=== PATIENT | female | born 1950 | race Caucasian/White ===

== ENCOUNTER 2016-05-19 11:06 | Emergency (ER) | payer MEDICARE ==
[~2016-05-19] VITALS: Ht 160 cm; Wt 81.2 kg
[~2016-05-19 11:06] MED LIST: ASPIRIN CHILDRE81 MG PO; LIPITOR80 MG PO; LISINOPRIL5 MG PO; NORVASC5 MG PO
[2016-05-19] MEDS ORDERED: PAROXETINE HCL10 MG PO (11:18)
[2016-05-19] MEDS ORDERED: PROPRANOLOL HYD80 MG PO (11:19)
[2016-05-19] MEDS ORDERED: LISINOPRIL AND1 TAB PO (11:19)
[2016-05-19] MEDS ORDERED: MECLIZINE HCL12.5 MG PO (11:20)
[2016-05-19 12:17] LABS: BASO # 0.1 10*3/uL (0.0-0.1); BASO % 0.9 % (0.0-1.0); EOS # 0.1 10*3/uL (0.0-0.4); EOS % 1.9 % (1.0-4.0); HEMATOCRIT 39.7 % (37.0-47.0); HEMOGLOBIN 13.1 g/dl (12.0-16.0); LYMPH # 2.3 10*3/uL (1.3-4.4); LYMPH % 34.6 % (27.0-41.0); MEAN CELL VOLUME 92.5 fl (81.0-99.0); MEAN CORPUSCULAR HGB 30.5 pg (27.0-31.0); MEAN PLATELET VOLUME 10.1 fl (9.6-12.3); MONO # 0.5 10*3/uL (0.1-1.0); MONO % 6.6 % (3.0-9.0); NEUT # 3.8 10*3/uL (2.3-7.9); NEUT % 55.7 % (47.0-73.0); PLATELET COUNT AUTOMATED 194 10*3/uL (130-400); RED BLOOD COUNT 4.29 10*6/uL (4.10-5.10); RED CELL DISTRI WIDTH 12.8 % (0-14.5); WHITE BLOOD COUNT 6.8 10*3/uL (4.8-10.8)
[2016-05-19 12:32] LABS: ALBUMIN 3.5 gm/dl (3.1-4.5); ALKALINE PHOSPHATASE 60 U/L (45-117); BILIRUBIN, TOTAL 0.4 mg/dl (0.2-1.0); BUN 19 mg/dl (7-24); CARBON DIOXIDE 29 mmol/L (21-32); CHLORIDE 105 mmol/L (98-107); EST GLOM FILT AFRICAN AMERICAN > 60 ml/min; GLUCOSE 97 mg/dL (65-99); SGOT/AST 16 IU/L (3-35); SGPT/ALT 27 U/L (12-78); SODIUM 140 mmol/L (136-145); TOTAL PROTEIN 7.8 gm/dL (6.4-8.2)
[2016-05-19 13:14] LABS: BILIRUBIN NEGATIVE (NEGATIVE); BLOOD NEGATIVE (NEGATIVE); CLARITY SL CLOUDY (CLEAR); COLOR YELLOW (YELLOW); GLUCOSE NEGATIVE (NEGATIVE); KETONE NEGATIVE (NEGATIVE); LEUKO ESTERASE NEGATIVE (NEGATIVE); NITRITE NEGATIVE (NEGATIVE); PH 5.5 (5.0-9.0); PROTEIN NEGATIVE (NEGATIVE); SPECIFIC GRAVITY <= 1.005 (1.005-1.030); UROBILINOGEN 0.2 E.U./dl (0.2-1.0)
[2016-05-19 13:22] LABS: BACTERIA 1+; URINE REFLEX COMMENT NO (NO)
[2016-05-19] MEDS ORDERED: ZOFRAN ODT4 MG SL (14:39)
== END 2016-05-19 14:42 | disposition home or self-care (01) ==
LOC: ED 11:06
PROVIDERS: Registered Nurse
DX: R42 Dizziness and giddiness (principal); Z88.2 Allergy status to sulfonamides; Z79.82 Long term (current) use of aspirin; Z79.899 Other long term (current) drug therapy

== ENCOUNTER → 2019-08-17 | Outpatient (CLI) | payer MEDICARE, OTHER ==
[~2019-08-17] MED LIST changes: +LISINOPRIL AND1 TAB PO; +MECLIZINE HCL12.5 MG PO; +PAROXETINE HCL10 MG PO; +PROPRANOLOL HYD80 MG PO; +ZOFRAN ODT4 MG SL
[2019-08-17 09:29] LABS: CREATININE 1.33 mg/dL (0.55-1.02)
== END | disposition home or self-care (01) ==
LOC: CT 08:39 → LAB 08:39 → CT 09:00
PROVIDERS: Radiology Diagnostic Radiology
DX: R91.8 Other nonspecific abnormal finding of lung field (principal)

== ENCOUNTER → 2019-08-22 | Outpatient (CLI) | payer MEDICARE, OTHER | END | disposition home or self-care (01) | LOC: MAMMO 03:01 | DX: Z12.31 Encounter for screening mammogram for malignant neoplasm of breast (principal) ==

== ENCOUNTER → 2021-08-07 | Outpatient (CLI) | payer MEDICARE, OTHER | END | disposition home or self-care (01) | LOC: MAMMO 02:25 | PROVIDERS: ATTEND Nurse Practitioner Family | DX: Z12.31 Encounter for screening mammogram for malignant neoplasm of breast (principal) ==

== ENCOUNTER 2023-04-26 18:49 | Inpatient (IN) | payer MEDICARE, OTHER ==
[~2023-04-26] VITALS: Ht 154.9 cm; Wt 82.3 kg
[2023-04-26 19:03] VITALS: BP 96/74
[2023-04-26 19:54] LABS: BASO # 0.1 10*3/uL (0.0-0.1); BASO % 0.3 % (0.0-1.0); EOS # 0.1 10*3/uL (0.0-0.4); EOS % 0.7 % (1.0-4.0); HEMATOCRIT 46.6 % (37.0-47.0); LYMPH # 1.9 10*3/uL (1.3-4.4); LYMPH % 12.5 % (27.0-41.0); MEAN CELL VOLUME 88.6 fl (81.0-99.0); MEAN CORPUSCULAR HGB 29.3 pg (27.0-31.0); MONO # 1.4 10*3/uL (0.1-1.0); MONO % 8.7 % (3.0-9.0); NEUT % 77.4 % (47.0-73.0); PLATELET COUNT AUTOMATED 254 10*3/uL (130-400); RED BLOOD COUNT 5.26 10*6/uL (4.10-5.10); RED CELL DISTRI WIDTH 12.9 % (0-14.5); WHITE BLOOD COUNT 15.5 10*3/uL (4.8-10.8)
[2023-04-26 20:14] LABS: BILIRUBIN 2+ (Negative); BLOOD Negative (Negative); CLARITY Cloudy (Clear); COLOR Dark Yellow (Yellow); GLUCOSE Negative (Negative); KETONE 1+ (Negative); LEUKO ESTERASE 1+ (Negative); NITRITE Negative (Negative); PH 5.5 (4.5-8.0)
[2023-04-26 20:20] LABS: POTASSIUM 2.9 mmol/L (3.4-5.1); TOTAL PROTEIN 8.3 gm/dL (6.0-8.0)
[2023-04-26 20:41] LABS: BACTERIA 4+; EPITHELIAL CELLS 0-2; WBC 16-20 wbc/hpf (0-5)
[2023-04-26] MEDS ORDERED: POTASSIUM CHLORIDE 20 MEQ TAB PO ONE (21:55)
[2023-04-26] MEDS ORDERED: SODIUM CHLORIDE 0.9% 1,000 ML IV ONE (21:55)
[2023-04-26] MEDS ORDERED: Ceftriaxone Sodium 1 GM/10 ML SYR IV ONE (21:55)
[2023-04-26] MEDS ORDERED: POTASSIUM CHLORIDE IN WATER 100 ML IV SCH (22:00)
[2023-04-26 22:25] VITALS: BP 150/90
[2023-04-26] MEDS ORDERED: SODIUM CHLORIDE 0.9% 1,000 ML IV SCH (23:00)
[2023-04-26] MEDS ORDERED: ACETAMINOPHEN 325 MG TAB PO PRN (23:25)
[2023-04-26] MEDS ORDERED: Acetaminophen/Hydrocodone 5 MG/325 MG TABLET PO PRN (23:25)
[2023-04-26] MEDS ORDERED: BISACODYL 5 MG TAB PO PRN (23:25)
[2023-04-27] VITALS: BP 153/81
[2023-04-27] MEDS ORDERED: HYDROCHLOROTH12.5 M2 PO (00:01)
[2023-04-27] MEDS ORDERED: PAROXETINE HCL20 MG PO (00:02)
[2023-04-27] MEDS ORDERED: VITAMIN D325 MCG PO (00:02)
[2023-04-27] MEDS ORDERED: NEXIUM 24HR20 M1 PO (00:04)
[2023-04-27] MEDS ORDERED: CALCIUM (TUMS) 500MG PO ONE (00:25)
[2023-04-27] MEDS ORDERED: Ceftriaxone Sodium 1 GM in SYRINGE INFUSION 10 ML IV SCH ×2 (00:30→10:00)
[2023-04-27] MEDS ORDERED: Pantoprazole Sodium 40 MG TAB PO PRN (06:00)
[2023-04-27] MEDS ORDERED: Pantoprazole Sodium 40 MG TAB PO SCH ×2 (06:00→07:00)
[2023-04-27 06:25] LABS: ACT PARTIAL THROMBO TIME 28.6 SECONDS (20.0-32.1)
[2023-04-27 06:36] LABS: BASO % 0.3 % (0.0-1.0); EOS # 0.1 10*3/uL (0.0-0.4); EOS % 1.1 % (1.0-4.0); HEMATOCRIT 42.3 % (37.0-47.0); LYMPH # 1.3 10*3/uL (1.3-4.4); LYMPH % 10.5 % (27.0-41.0); MEAN CELL VOLUME 91.4 fl (81.0-99.0); MEAN CORPUSCULAR HGB 29.8 pg (27.0-31.0); MEAN CORPUSCULAR HGB CONC 32.6 g/dl (33.0-37.0); MEAN PLATELET VOLUME 10.6 fl (9.6-12.3); MONO % 8.1 % (3.0-9.0); NEUT # 9.9 10*3/uL (2.3-7.9); NEUT % 79.6 % (47.0-73.0); PLATELET COUNT AUTOMATED 183 10*3/uL (130-400); RED BLOOD COUNT 4.63 10*6/uL (4.10-5.10); RED CELL DISTRI WIDTH 13.1 % (0-14.5); WHITE BLOOD COUNT 12.4 10*3/uL (4.8-10.8)
[2023-04-27 06:54] LABS: ALKALINE PHOSPHATASE 66 U/L (46-116); BUN 11 mg/dl (9-23); CHLORIDE 102 mmol/L (98-107); CHOLESTEROL 161 mg/dL (<200); LDL CHOLESTEROL 101 mg/dL (9-159); POTASSIUM 3.8 mmol/L (3.4-5.1); SGPT/ALT 37 U/L (5-49); TOTAL PROTEIN 7.1 gm/dL (6.0-8.0); TRIGLYCERIDES 58 mg/dl (<150)
[2023-04-27 07:42] LABS: VITAMIN D, 25-HYDROXY 32.5 ng/mL (30-100)
[2023-04-27 08:00] VITALS: BP 150/53
[2023-04-27] MEDS ORDERED: CALCIUM (TUMS) 500MG PO PRN (10:00)
[2023-04-27] MEDS ORDERED: Vitamin D 1,000 IU TAB (25 MCG) PO SCH (10:00)
[2023-04-27] MEDS ORDERED: HYDROCHLOROTHIAZIDE 12.5 MG CAP PO SCH (10:00)
[2023-04-27] MEDS ORDERED: ASPIRIN, CHEWABLE 81 MG TAB PO SCH (10:00)
[2023-04-27] MEDS ORDERED: Enoxaparin Sodium 40 MG/0.4 ML SYR SC SCH (10:00)
[2023-04-27 12:00] VITALS: BP 136/53
[2023-04-27 16:00] VITALS: BP 141/63
[2023-04-27 18:00] VITALS: BP 141/63
[2023-04-27 20:00] VITALS: BP 144/73
[2023-04-28] VITALS: BP 159/72
[2023-04-28 06:08] LABS: BASO % 0.4 % (0.0-1.0); EOS # 0.2 10*3/uL (0.0-0.4); HEMATOCRIT 40.7 % (37.0-47.0); LYMPH # 1.7 10*3/uL (1.3-4.4); LYMPH % 16.5 % (27.0-41.0); MEAN CELL VOLUME 90.2 fl (81.0-99.0); MEAN CORPUSCULAR HGB 29.5 pg (27.0-31.0); MEAN CORPUSCULAR HGB CONC 32.7 g/dl (33.0-37.0); MEAN PLATELET VOLUME 10.4 fl (9.6-12.3); MONO % 9.3 % (3.0-9.0); NEUT # 7.3 10*3/uL (2.3-7.9); NEUT % 71.4 % (47.0-73.0); PLATELET COUNT AUTOMATED 187 10*3/uL (130-400); RED BLOOD COUNT 4.51 10*6/uL (4.10-5.10); WHITE BLOOD COUNT 10.2 10*3/uL (4.8-10.8)
[2023-04-28 06:12] LABS: BUN 10 mg/dl (9-23); CHLORIDE 98 mmol/L (98-107); POTASSIUM 3.2 mmol/L (3.4-5.1)
[2023-04-28 08:00] VITALS: BP 154/69
[2023-04-28] MEDS ORDERED: POTASSIUM CHLORIDE 20 MEQ TAB PO ONE (09:00)
[2023-04-28 12:01] VITALS: BP 128/85
[2023-04-28 16:00] VITALS: BP 146/73
[2023-04-28 20:00] VITALS: BP 125/70
[2023-04-29] VITALS: BP 122/56
[2023-04-29 06:49] LABS: BUN 17 mg/dl (9-23); CHLORIDE 100 mmol/L (98-107); POTASSIUM 3.6 mmol/L (3.4-5.1)
[2023-04-29 08:00] VITALS: BP 104/68
[2023-04-29] MEDS ORDERED: CIPRO500 MG PO (10:47)
== END 2023-04-29 11:34 | disposition home or self-care (01) | DRG 872 ==
LOC: ED 18:49 → EDHOLD 23:04 → 4E 23:04 → EDHOLD 23:37 → 4E 23:38
PROVIDERS: Emergency Medicine; Internal Medicine; Student in an Organized Health Care Education/Training Program; ADMIT Emergency Medicine; ATTEND Emergency Medicine
DX: A41.9 Sepsis, unspecified organism (principal); E87.1 Hypo-osmolality and hyponatremia; N30.00 Acute cystitis without hematuria; Z16.11 Resistance to penicillins; I10 Essential (primary) hypertension; B96.20 Unspecified Escherichia coli [E. coli] as the cause of diseases classified elsewhere; R73.9 Hyperglycemia, unspecified; R12 Heartburn; K21.9 Gastro-esophageal reflux disease without esophagitis; E87.8 Other disorders of electrolyte and fluid balance, not elsewhere classified; E87.6 Hypokalemia; R35.0 Frequency of micturition; G62.9 Polyneuropathy, unspecified; R91.1 Solitary pulmonary nodule; Z98.51 Tubal ligation status; Z91.89 Other specified personal risk factors, not elsewhere classified; Z86.73 Personal history of transient ischemic attack (TIA), and cerebral infarction without residual deficits; Z87.891 Personal history of nicotine dependence; Z83.3 Family history of diabetes mellitus; Z88.2 Allergy status to sulfonamides; Z79.82 Long term (current) use of aspirin; Z79.899 Other long term (current) drug therapy; Z68.34 Body mass index [BMI] 34.0-34.9, adult

== ENCOUNTER → 2023-11-30 | Outpatient (CLI) | payer MEDICARE, OTHER ==
[~2023-11-30] MED LIST changes: +CIPRO500 MG PO; +HYDROCHLOROTH12.5 M2 PO; +NEXIUM 24HR20 M1 PO; +PAROXETINE HCL20 MG PO; +VITAMIN D325 MCG PO
== END | disposition home or self-care (01) ==
LOC: RAD 10:19 → MAMMO 11:00
PROVIDERS: ATTEND Internal Medicine
DX: Z12.31 Encounter for screening mammogram for malignant neoplasm of breast (principal); Z13.820 Encounter for screening for osteoporosis; Z78.0 Asymptomatic menopausal state